=== PATIENT | female | born 1965 | race African-American/Black ===

== ENCOUNTER 2024-01-09 11:39 | Emergency (ER) | payer OTHER ==
[~2024-01-09] VITALS: Ht 162.6 cm; Wt 73.6 kg
[2024-01-09] MEDS ORDERED: SERT25TA85 PO (11:55)
[2024-01-09] MEDS ORDERED: QUET1TAB17 PO (11:55)
[2024-01-09 14:53] LABS: BASO # 0.1 10^3/uL (0.0-0.2); BASO % 0.6 % (0.0-1.0); EOS # 0.1 10^3/uL (0.0-0.5); EOS % 0.7 % (0.0-3.0); HEMATOCRIT 47.6 % (36.0-47.0); LYMPH # 2.6 10^3/uL (1.5-5.0); LYMPH % 29.3 % (24.0-44.0); MEAN CORPUSCULAR HEMOGLOBIN 31.7 pg (27.0-33.0); MEAN CORPUSCULAR HGB CONC 33.6 g/dl (32.0-36.5); MEAN CORPUSCULAR VOLUME 94.3 fl (80.0-96.0); MONO # 0.6 10^3/uL (0.0-0.8); MONO % 6.6 % (2.0-8.0); NEUTROPHILS # 5.5 10^3/uL (1.5-8.5); NEUTROPHILS % 62.6 % (36.0-66.0); PLATELET COUNT, AUTOMATED 298 10^3/uL (150-450); RED BLOOD COUNT 5.05 10^6/uL (4.00-5.40); WHITE BLOOD COUNT 8.8 10^3/uL (4.0-10.0)
[2024-01-09 15:17] LABS: BLOOD UREA NITROGEN 16 MG/DL (9-23); CALCIUM LEVEL 9.7 MG/DL (8.5-10.1); CARBON DIOXIDE LEVEL 27 MMOL/L (20-31); CHLORIDE LEVEL 105 MMOL/L (98-107); CREATININE FOR GFR 0.75 MG/DL (0.55-1.30); GLOMERULAR FILTRATION RATE > 60.0 (>51); GLUCOSE, FASTING 83 MG/DL (60-100); POTASSIUM SERUM 4.1 MMOL/L (3.5-5.1); SODIUM LEVEL 138 MMOL/L (136-145)
[2024-01-09] MEDS: METOCLOPRAMIDE 10MG TAB PO ONE (15:32)
[2024-01-09] MEDS: CYCLOBENZAPRINE 5MG TABLET PO ONE (15:32)
[2024-01-09] MEDS: diphenhydrAMINE 25MG CAP PO ONE (15:32)
[2024-01-09] MEDS: LIDOCAINE 5% (LIDODERM) PATCH TD ONE (15:32)
[2024-01-09 16:34] VITALS: BP 106/56; TEMP 98.1; O2SAT 99
[2024-01-09] MEDS ORDERED: CYCL-707 PO (16:41)
[2024-01-09] MEDS ORDERED: LIDO5DIS41 TD (16:41)
== END 2024-01-09 16:51 | disposition home or self-care (01) ==
LOC: M ED 11:39
DX: G44.209 Tension-type headache, unspecified, not intractable (principal); M79.10 Myalgia, unspecified site; E03.9 Hypothyroidism, unspecified; F17.200 Nicotine dependence, unspecified, uncomplicated; Z79.899 Other long term (current) drug therapy; Z88.6 Allergy status to analgesic agent

== ENCOUNTER 2024-03-26 15:36 | Emergency (ER) | payer MEDICAID ==
[~2024-03-26] VITALS: Ht 162.6 cm; Wt 72.5 kg
[~2024-03-26 15:36] MED LIST: CYCL-707 PO; LIDO5DIS41 TD; QUET1TAB17 PO; SERT25TA85 PO
[2024-03-26] MEDS ORDERED: SERT50TA29 (15:48)
[2024-03-26] MEDS ORDERED: DICL20GE TP (19:45)
[2024-03-26 19:59] VITALS: BP 121/82; TEMP 98.8; O2SAT 99
== END 2024-03-26 20:00 | disposition home or self-care (01) ==
LOC: M ED 15:36
DX: S06.0XAA Concussion with loss of consciousness status unknown, initial encounter (principal); S13.4XXA Sprain of ligaments of cervical spine, initial encounter; S00.81XA Abrasion of other part of head, initial encounter; S00.83XA Contusion of other part of head, initial encounter; M50.323 Other cervical disc degeneration at C6-C7 level; Y04.8XXA Assault by other bodily force, initial encounter; Y92.009 Unspecified place in unspecified non-institutional (private) residence as the place of occurrence of the external cause; Y93.9 Activity, unspecified; Y99.9 Unspecified external cause status; F90.9 Attention-deficit hyperactivity disorder, unspecified type; M54.9 Dorsalgia, unspecified; J45.909 Unspecified asthma, uncomplicated; Z86.73 Personal history of transient ischemic attack (TIA), and cerebral infarction without residual deficits; F17.200 Nicotine dependence, unspecified, uncomplicated; Z79.899 Other long term (current) drug therapy; Z88.6 Allergy status to analgesic agent

== ENCOUNTER → 2024-06-23 | Outpatient (REF) | payer MEDICAID, OTHER ==
[~2024-06-23] MED LIST changes: +DICL20GE TP; +SERT50TA29
[2024-06-23 18:25] LABS: BASO # 0.1 10^3/uL (0.0-0.2); BASO % 0.7 % (0.0-1.0); EOS # 0.1 10^3/uL (0.0-0.5); EOS % 1.1 % (0.0-3.0); HEMATOCRIT 45.8 % (36.0-47.0); LYMPH # 2.5 10^3/uL (1.5-5.0); LYMPH % 26.9 % (24.0-44.0); MEAN CORPUSCULAR HEMOGLOBIN 31.5 pg (27.0-33.0); MEAN CORPUSCULAR HGB CONC 32.8 g/dl (32.0-36.5); MEAN CORPUSCULAR VOLUME 96.2 fl (80.0-96.0); MONO # 0.7 10^3/uL (0.0-0.8); MONO % 7.6 % (2.0-8.0); NEUTROPHILS # 5.9 10^3/uL (1.5-8.5); NEUTROPHILS % 63.4 % (36.0-66.0); PLATELET COUNT, AUTOMATED 307 10^3/uL (150-450); RED BLOOD COUNT 4.76 10^6/uL (4.00-5.40); WHITE BLOOD COUNT 9.2 10^3/uL (4.0-10.0)
[2024-06-23 18:50] LABS: HEMOGLOBIN A1c 5.4 % (4.0-6.0)
[2024-06-23 18:55] LABS: THYROID STIMULATING HORMONE 2.564 uIU/ML (0.55-4.78); TOTAL 25(OH) VITAMIN D 13.2 NG/ML (20.0-100.0)
[2024-06-23 18:56] LABS: ALBUMIN 4.1 G/DL (3.2-5.2); ALKALINE PHOSPHATASE 71 U/L (35-104); ALT/SGPT 18 U/L (7.0-40); AST/SGOT 15 U/L (<34); BILIRUBIN,TOTAL 0.4 MG/DL (0.3-1.2); BLOOD UREA NITROGEN 21 MG/DL (9-23); CALCIUM LEVEL 9.2 MG/DL (8.5-10.1); CARBON DIOXIDE LEVEL 30 MMOL/L (20-31); CHLORIDE LEVEL 106 MMOL/L (98-107); CHOLESTEROL LEVEL 240 MG/DL (<200); CHOLESTEROL RISK RATIO 2.45 (<5); GLOMERULAR FILTRATION RATE > 60.0 (>51); GLUCOSE, FASTING 72 MG/DL (60-100); HDL CHOLESTEROL 97.8 MG/DL (>40); NON-HDL-C 142.2 MG/DL; POTASSIUM SERUM 4.5 MMOL/L (3.5-5.1); SODIUM LEVEL 142 MMOL/L (136-145); TOTAL PROTEIN 7.4 G/DL (5.7-8.2); TRIGLYCERIDES LEVEL 206 MG/DL (<150)
== END ==
LOC: M LAB REF 16:20
PROVIDERS: ATTEND Nurse Practitioner Family
DX: E66.3 Overweight (principal); E55.9 Vitamin D deficiency, unspecified; Z11.9 Encounter for screening for infectious and parasitic diseases, unspecified; R53.83 Other fatigue

== ENCOUNTER → 2024-07-14 | Outpatient (REF) | payer OTHER, MEDICAID ==
[2024-07-17 13:52] LABS: HPV APTIMA Not Detected (Not Detected)
== END ==
LOC: M LAB REF 12:35
PROVIDERS: ATTEND Nurse Practitioner Family
DX: N76.0 Acute vaginitis (principal); Z12.4 Encounter for screening for malignant neoplasm of cervix
CPT/HCPCS: 87070; 87077; 87186; 87624; G0123

== ENCOUNTER → 2024-08-20 | Outpatient (REF) | payer OTHER, MEDICAID ==
[~2024-08-20] MED LIST changes: +BACTDSTA PO; +SERT50TA29 PO; +VENTAER INH
== END ==
LOC: M LAB REF 17:50
PROVIDERS: ATTEND Nurse Practitioner Family
DX: R30.0 Dysuria (principal)

== ENCOUNTER → 2024-08-27 | Outpatient (REF) | payer OTHER, MEDICAID ==
[2024-08-27 18:48] LABS: MAGNESIUM LEVEL 1.8 MG/DL (1.8-2.4)
[2024-08-27 18:59] LABS: FOLATE 17.9 NG/ML (>5.4)
== END ==
LOC: M LAB REF 17:28
PROVIDERS: ATTEND Nurse Practitioner Family
DX: R20.2 Paresthesia of skin (principal)

== ENCOUNTER 2024-09-22 11:57 | Emergency (ER) | payer OTHER, MEDICAID ==
[~2024-09-22] VITALS: Ht 162.6 cm; Wt 97.9 kg
[2024-09-22 13:03] LABS: KETONE, URINE AUTO RFX NEGATIVE (NEGATIVE); LEUKOCYTE ESTERASE UR AUTO RFX NEGATIVE (NEGATIVE); MUCUS, URINE RFX SMALL (NEGATIVE); NITRITE, URINE AUTO RFX NEGATIVE (NEGATIVE); RBC, URINE AUTO RFX 2 /HPF (0-3); SQUAM EPITHELIAL CELL UR AURFX 1 /HPF (0-6); WBC, URINE AUTO RFX 0 /HPF (0-3)
[2024-09-22 14:12] LABS: Trichomonas vaginalis (AMP) NOT DETECTED (NEGATIVE)
[2024-09-22 14:35] LABS: GC DNA AMPLIFICATION NEGATIVE (NEGATIVE)
[2024-09-22 17:44] VITALS: BP 146/80; TEMP 97.6; O2SAT 97
== END 2024-09-22 17:48 | disposition home or self-care (01) ==
LOC: M ED 11:57
DX: N76.0 Acute vaginitis (principal); F17.200 Nicotine dependence, unspecified, uncomplicated; Z88.6 Allergy status to analgesic agent; Z88.5 Allergy status to narcotic agent; Z88.8 Allergy status to other drugs, medicaments and biological substances